=== PATIENT | female | born 2000 | race Two or more races ===

== ENCOUNTER 2022-06-21 22:05 | Inpatient (IN) | payer OTHER ==
[~2022-06-21] VITALS: Ht 167.6 cm; Wt 108.4 kg
[2022-06-21] MEDS ORDERED: PRENATAL TABLE1 EAC1 PO (22:39)
== END 2022-06-24 15:53 | disposition home or self-care (01) | DRG 788 ==
LOC: LDR 22:05 → OB/GYN 22:05
PROVIDERS: ADMIT Obstetrics & Gynecology; ATTEND Obstetrics & Gynecology
PROC: 4A1HXCZ Monitoring of Products of Conception, Cardiac Rate, External Approach (ICD-10-PCS; 2022-06-21)
PROC: 10D00Z1 Extraction of Products of Conception, Low, Open Approach (ICD-10-PCS; principal; 2022-06-22 19:15)
DX: O13.4 Gestational [pregnancy-induced] hypertension without significant proteinuria, complicating childbirth (principal); Z3A.39 39 weeks gestation of pregnancy; Z37.0 Single live birth; Z20.822 Contact with and (suspected) exposure to COVID-19